=== PATIENT | male | born 1940 | race Asian ===

== ENCOUNTER → 2017-03-10 | Outpatient (CLI) | payer MEDICARE, BC ==
[~2017-03-10] MED LIST: ACET-66 PO; AMLO1CAP46 PO; ATOR40TA28 PO; FERR134T5 PO; FISH1CAP49 PO; FURO40TA5 PO; INSLAN SQ; METO50TA5 PO; MULT-1082 PO; RABE20TA60 PO; VIT D3 PO
== END | disposition home or self-care (01) ==
LOC: RADPV 08:24
PROVIDERS: ATTEND Internal Medicine Cardiovascular Disease
DX: I50.1 Left ventricular failure, unspecified (principal); I08.0 Rheumatic disorders of both mitral and aortic valves
CPT/HCPCS: 93306